=== PATIENT | male | born 1960 | race Caucasian/White ===

== ENCOUNTER → 2018-09-05 16:15 | Outpatient (CLI) | payer OTHER, SELFPAY | PROVIDERS: Family Provider Preventive Medicine Occupational Medicine; PCP Preventive Medicine Occupational Medicine; Referring Provider Otolaryngology Otolaryngology/Facial Plastic Surgery; Visit Provider Otolaryngology Otolaryngology/Facial Plastic Surgery | DX: J32.9 Chronic sinusitis, unspecified (principal) | CPT/HCPCS: 87070; 87205 ==

== ENCOUNTER → 2018-09-15 07:25 | Outpatient (CLI) | payer OTHER, SELFPAY ==
--- NOTE | 2018-09-15 07:38 | CT_ITS ---
STUDY: CT MAXILLOFACIAL SINUSES REASON FOR EXAM: Male, 58 years old. Sinusitis. Congestion and drainage. RADIATION DOSAGE (If Supplied By Facility): CTDIvol = ( 33.06 ) mGy, DLP = ( 875.17 ) mGycm TECHNIQUE: The patient was scanned in a multi detector CT scanner. High resolution axial imaging was performed without the administration of intravenous contrast material. Sagittal and coronal images were reconstructed. Individualized dose optimization techniques were used for this CT. COMPARISON: None. FINDINGS: FRONTAL SINUSES: Minimal mucosal thickening in the left frontal sinus. Normal right frontal sinus. ETHMOIDAL SINUSES: Moderate mucosal thickening in the left anterior ethmoid sinus. Minimal mucosal thickening in the right anterior ethmoid sinus. Normal middle ethmoid sinus and posterior ethmoid sinus. MAXILLARY SINUSES: Moderate mucosal thickening in the right maxillary sinus. Mild mucosal thickening in the left maxillary sinus. SPHENOIDAL SINUSES: Normal aeration, without mucosal inflammatory disease. Obstructed right ostiomeatal unit at the ostium and along the infundibulum due to mucosal thickening. Normal right semilunar hiatus. Normal right lateral nasal wall. Obstructed left measuring ostium due to mucosal thickening. Patent left infundibulum, left semilunar hiatus and left lateral nasal wall. Normal bilateral middle turbinates. Normal bilateral inferior turbinates. Prominent left nasal septal spur with mild left nasoseptal deviation. There is patency of the bilateral nasal airways. The visualized osseous structures are normal. The visualized bilateral orbital contents are normal. Atherosclerotic calcifications in the cavernous segments of both internal carotid arteries. CT/Sinus/Facial Bone IMPRESSION: 1. Moderate mucosal thickening in the right maxillary sinus and left anterior ethmoid sinus. 2. Mild mucosal thickening in the left maxillary sinus, right anterior ethmoid sinus and left frontal sinus. 3. Obstructed right ostiomeatal unit due to mucosal thickening at the ostium and along the right infundibulum. 4. Obstructed left ostiomeatal unit due to mucosal thickening at the ostium. 5. Mild left nasal septal deviation and a prominent left nasal septal spur. Electronically Signed: Dennis Riley MD at 15:55 EDT , Service support ,
== END ==
PROVIDERS: Family Provider Preventive Medicine Occupational Medicine; PCP Preventive Medicine Occupational Medicine; Referring Provider Otolaryngology Otolaryngology/Facial Plastic Surgery; Visit Provider Otolaryngology Otolaryngology/Facial Plastic Surgery
DX: J32.9 Chronic sinusitis, unspecified (principal)
CPT/HCPCS: 70486

== ENCOUNTER 2019-11-15 00:42 | Emergency (ER) | payer OTHER, SELFPAY ==
[2019-11-15 00:42] VITALS: BP 119/79; PULSE 99; RESP 21; TEMP 36.7; O2SAT 93; BMI 30.7
[2019-11-15 01:02] VITALS: PULSE 98; RESP 18; O2SAT 93
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
[2019-11-15 03:40] VITALS: BP 116/67; PULSE 94; RESP 24; O2SAT 96
--- NOTE | 2019-11-15 19:58 | ED.RN ---
[facility]ART OPEN[id number] WITH A SIGNED RELEASE OF RECORDS. PERMISSION GIVEN BY L[facility]UCKERG[facility]ERNMENT RELATIONS DIRECTOR
== END 2019-11-15 03:53 | disposition home or self-care (01) ==
PROVIDERS: Emergency Provider Emergency Medicine; PCP Preventive Medicine Occupational Medicine
DX: S02.2XXA Fracture of nasal bones, initial encounter for closed fracture (principal); S02.85XA Fracture of orbit, unspecified, initial encounter for closed fracture; F17.200 Nicotine dependence, unspecified, uncomplicated; Y04.2XXA Assault by strike against or bumped into by another person, initial encounter
CPT/HCPCS: 70450; 70486; 99284